=== PATIENT | female | born 1985 | race Caucasian/White ===

== ENCOUNTER 2016-06-11 23:56 | Emergency (ER) | payer BC, OTHER ==
[~2016-06-11] VITALS: Ht 167.6 cm; Wt 127.3 kg
[2016-06-12 00:03] VITALS: TEMP 37; Ht 167.6 cm; Wt 127.3 kg
[2016-06-12] MEDS ORDERED: KETOROLAC TROMETHAMINE 60 MG/2 ML VIAL IM STA (00:09)
--- NOTE | 2016-06-12 00:12 | EMERGENCY ROOM VISIT NOTE ---
History Report prepared by Marge: Pati Hinojosa Under the Supervision of: Dr. Daniel Clark D.O. First contact with patient: 00:06 Chief Complaint: ARM PAIN Stated Complaint: R ARM PAIN, SHARP PAIN, UNABLE TO MOVE CERTAIN DIR History of Present Illness The patient is a 31 year old female who presents to the Emergency Room with complaints of sharp right arm pain beginning 13 hours ago. She reports that she is a mental health tech at [employer] and she suddenly got right arm pain while at work. She states that she is not able to move her arm in certain directions. The patient complains of tingling in her arm and notes that she felt a pop when she took her shirt off. Source of History: patient Onset: 13 hours ago Position: arm (right) Quality: sharp Timing: constant Modifying Factors (Worsening): movement Note: The patient complains of tingling. Review of Systems See HPI for pertinent positives & negatives. A total of 10 systems reviewed and were otherwise negative. Past Medical & Surgical Medical Problems: (1) Borderline diabetes Family History Patient reports no known family medical history. Social History Smoking Status: Current Every Day Smoker Alcohol Use: none Marital Status: single Housing Status: unknown Occupation Status: employed Allergies Coded Allergies: Sulfamethoxazole w/Trimethoprim (Verified Allergy, Unknown, ., 12/12/14) Physical Exam Vital Signs Date Time Temp Pulse Resp B/P Pulse Ox O2 Delivery O2 Flow Rate FiO2 06/12/16 00:03 37.0 85 18 150/89 100 Room Air Physical Exam CONSTITUTIONAL/VITAL SIGNS: Reviewed / noted above. GENERAL: Non-toxic in appearance. INTEGUMENTARY: Warm, dry, and Mio. HEAD: Normocephalic. EYES: without scleral icterus or trauma. ENT/OROPHARYNX: clear and moist. LYMPHADENOPATHY/NECK: Is supple without lymphadenopathy or meningismus. RESPIRATORY: Lungs clear and equal. CARDIOVASCULAR: Regular rate and rhythm. GI/ABDOMEN: Soft and nontender. No organomegaly or pulsatile mass. No rebound or guarding. Normal bowel sounds. EXTREMITIES: Warm and well perfused. Tenderness to palpation of the right shoulder soft tissue and musculature. Discomfort with range of motion of the right shoulder. No other abnormalities. BACK: No CVA tenderness. NEUROLOGICAL: Intact without focal deficits. PSYCHIATRIC: normal affect. MUSCULOSKELETAL: Normally developed with good muscle tone. Medical Decision & Procedures ER Provider Diagnostic Interpretation: X ray results and stated below per my interpretation. Shoulder X-Ray: No acute disease, no fracture, no dislocation. Medications Administered Medications (Trade) Dose Ordered Sig/Nadeem Route Start Time Stop Time Status Last Admin Dose Admin Ketorolac Tromethamine (Toradol Inj) 60 mg NOW STAT IM 06/12/16 00:09 06/12/16 00:10 DC 06/12/16 00:14 60 MG ED Course 0006: Previous medical records were reviewed. The patient was evaluated in room A11. A complete history and physical examination was performed. 0009: Toradol Inj 60mg IM. 0118: On reevaluation, the patient is hemodynamically stable. I discussed the results and findings with the patient. She verbalized agreement of the treatment plan. The patient was discharged home. Medical Decision Differentials include overuse syndrome, dislocation, fracture, arthritis, infection, trauma. This is a 31-year-old female who presents to the ED with a chief complaint of right shoulder pain. She states that it started earlier today while at work. It is not necessarily work-related. She does not recall specific injury. Her pain is worse with movement. Exam reveals no rashes. She has tenderness to palpation the musculature. Distally she is neurovascularly intact. There are no rashes or evidence of infection. The patient had an x-ray of the shoulder that did not show any acute process. She was told the results. She is given Toradol IM. She is felt to be stable for discharge. Impression Primary Impression: Arm pain, right Scribe Attestation The scribe's documentation has been prepared under my direction and personally reviewed by me in its entirety. I confirm that the note above accurately reflects all work, treatment, procedures, and medical decision making performed by me. Departure Information Dispostion Home / Self-Care Referrals No Doctor, Assigned (PCP) Forms HOME CARE DOCUMENTATION FORM, IMPORTANT VISIT INFORMATION Patient Instructions My [facility] Additional Instructions Take Tylenol or Motrin for ear pain. Follow-up with your doctor if symptoms persist.
[2016-06-12] MEDS ORDERED: DPKSR/500 PO (01:27)
[2016-06-12] MEDS ORDERED: TPM100 PO (01:27)
[2016-06-12 01:31] VITALS: BP 135/78; PULSE 85; O2SAT 98
--- NOTE | 2016-06-12 07:04 | DIAGNOSTIC IMAGING REPORT ---
RIGHT SHOULDER MIN 2 VIEWS ROUTINE CLINICAL HISTORY: Right shoulder pain. COMPARISON: None FINDINGS: Alignment of the right shoulder is anatomic. No fracture or suspicious lesion. Joint spaces are preserved. IMPRESSION: No abnormality of the right shoulder. Electronically signed by: Serafin Ng M.D. 06/12/2016 7:03 AM Dictated Date/Time: 06/12/2016 7:03 AM
== END 2016-06-12 01:32 | disposition home or self-care (01) ==
LOC: C.EDB 23:59 → C.EDA 06-12 01:32
DX: M25.511 Pain in right shoulder (principal); R73.03 Prediabetes; F17.200 Nicotine dependence, unspecified, uncomplicated; Z88.2 Allergy status to sulfonamides